=== PATIENT | male | born 1980 | race Caucasian/White ===

== ENCOUNTER 2020-01-14 11:42 | Emergency (ER) | payer OTHER, BC ==
--- NOTE | 2020-01-14 11:51 | EDM.PDOC ---
ED HPI GENERAL MEDICAL PROBLEM - General Chief Complaint: General Stated Complaint: hand injury Time Seen by Provider: 01/14/20 11:42 Source of Information: Reports: Patient History Limitations: Reports: No Limitations - History of Present Illness INITIAL COMMENTS - FREE TEXT/NARRATIVE: This patient is a 39 year ld male that presents to the ER. Patient reports he was working on accumulator when under high pressure hit his left hand with hydraulic oil. Patient reports he immediately washed with cool water and soap. Patient reports right away his hand burned, but now it feels better. Patient reports he is concerned with a high pressure injection wound, and infection risk. Patient denies any other injury. Onset: Today Onset Date: 01/14/20 Onset Time: 11:35 Duration: Minutes: (10) Location: Reports: Upper Extremity, Right Front/Back Body Image: 1 - pain, Quality: Reports: Burning Severity: Mild Improves with: Reports: None Worsens with: Reports: None Associated Symptoms: Reports: No Other Symptoms. Denies: Confusion, Chest Pain , Cough, cough w sputum, Diaphoresis, Fever/Chills, Headaches, Loss of Appetite , Malaise, Nausea/Vomiting, Rash, Seizure, Shortness of Breath, Syncope, Weakness - Related Data Allergies Allergy/AdvReac Type Severity Reaction Status Date / Time No Known Allergies Allergy Verified 01/14/20 11:44 Home Meds: Home Meds Sulfamethoxazole/Trimethoprim [Bactrim Ds Tablet] 1 each PO BID #10 tablet 01/13 [Rx] ED ROS GENERAL - Review of Systems Review Of Systems: See Below Constitutional: Reports: No Symptoms HEENT: Reports: No Symptoms Respiratory: Reports: No Symptoms Cardiovascular: Reports: No Symptoms Endocrine: Reports: No Symptoms GI/Abdominal: Reports: No Symptoms : Reports: No Symptoms Musculoskeletal: Reports: Hand Pain (right hand burning, mild now.) Skin: Reports: Erythema (right hand) Neurological: Reports: No Symptoms Psychiatric: Reports: No Symptoms Hematologic/Lymphatic: Reports: No Symptoms Immunologic: Reports: No Symptoms ED EXAM, GENERAL - Physical Exam Exam: See Below Exam Limited By: No Limitations General Appearance: Alert, WD/WN, No Apparent Distress, Anxious Respiratory/Chest: No Respiratory Distress, Lungs Clear, Normal Breath Sounds, No Accessory Muscle Use Cardiovascular: Normal Peripheral Pulses, Regular Rate, Rhythm, No Edema, No Gallop, No JVD, No Murmur, No Rub Peripheral Pulses: 2+: Radial (L), Radial (R) Back Exam: Normal Inspection Extremities: Normal Range of Motion, No Pedal Edema, Normal Capillary Refill, Other (Left hand mild pain, tenderness. mild errythema. No visible blisters. Pulses +2 cap refill < 2sec, sensory/motor function intact. Neurovascular intact. ROM intact. ) Neurological: Alert, Oriented Psychiatric: Anxious Skin Exam: Warm, Dry, Intact, Erythema (right hand mild. ), Other (no open wounds) Course - Vital Signs Last Recorded V/S: Last Vital Signs Temp 97.4 F 01/14/20 11:42 Pulse 94 01/14/20 11:42 Resp 16 01/14/20 11:42 BP 148/93 H 01/14/20 11:42 Pulse Ox 98 01/14/20 11:42 - Orders/Labs/Meds Orders: Active Orders 24 hr Category Date Time Status Hand Comp Min 3V Lt [CR] Stat Exams 01/14/20 11:44 Taken - Radiology Interpretation Free Text/Narrative:: Left hand: FB seen left 2nd digit. No dislocation, no fracture. - Re-Assessments/Exams Free Text/Narrative Re-Assessment/Exam: 01/14/20 12:02 I do not see open wounds on his hands. But, a FB on the left 2nd digit xray. I will put patient on abx for this. I will not go opening patient skin to explore for this FB. I will have patient see his PCP tomorrow and Orthopedic this week. Patient educated when to return to the ER. 01/14/20 12:04 The FB is old metal from old injury. Discussed with patient his risks with injection injury at high pressure with the oil. He understands. Told him changes may occur as soon as he leaves the ER, to 6 hours, to days. He understands this, will see PCP tomorrow for recheck of the hand to ensure no complications. Departure - Departure Time of Disposition: 12:06 Disposition: Home, Self-Care 01 Condition: Fair Clinical Impression: Left hand pain - Discharge Information *PRESCRIPTION DRUG MONITORING PROGRAM REVIEWED*: Not Applicable *COPY OF PRESCRIPTION DRUG MONITORING REPORT IN PATIENT TONI: Not Applicable Prescriptions: Sulfamethoxazole/Trimethoprim [Bactrim Ds Tablet] 1 each PO BID #10 tablet Instructions: Hand Pain Referrals: PCP,None [Primary Care Provider] - Forms: ED Department Discharge Additional Instructions: Followup with primary care provider tomorrow for a recheck Followup with orthopedic this week Return to the ER for worsening of condition or any emergent concerns COLE for redness, drainage, opening of wounds, increase pain, blistering, fever, vomiting , or any concerns at all!!!! Rest Ice to hand Motrin/Tylenol for pain Elevate Bactrim DS 1 pill twice a day for 10 days #20 no refill: Sent to pharmacy Sepsis Event Note (ED) - Evaluation Sepsis Screening Result: No Definite Risk - Focused Exam Vital Signs: Vital Signs Temp Pulse Resp BP Pulse Ox 01/14/20 11:42 97.4 F 94 16 148/93 H 98 - My Orders Last 24 Hours: My Active Orders 01/14/20 11:44 Hand Comp Min 3V Lt [CR] Stat - Assessment/Plan Last 24 Hours: My Active Orders 01/14/20 11:44 Hand Comp Min 3V Lt [CR] Stat Plan: PLEASE SEE RN NOTE FOR PFSH.
== END 2020-01-14 12:13 | disposition home or self-care (01) ==
LOC: CC.ED 11:42
DX: M79.642 Pain in left hand (principal); Z79.899 Other long term (current) drug therapy
CPT/HCPCS: 73130-LT; 99283

== ENCOUNTER 2020-01-29 22:20 | Emergency (ER) | payer BC, OTHER ==
--- NOTE | 2020-01-29 22:35 | EDM.PDOC ---
ED HPI GENERAL MEDICAL PROBLEM - General Chief Complaint: General Stated Complaint: medical clearance for [facility] Time Seen by Provider: 01/29/20 22:20 Source of Information: Reports: Patient History Limitations: Reports: No Limitations - History of Present Illness INITIAL COMMENTS - FREE TEXT/NARRATIVE: Giovani is a 39 yo male who presents to the ED for medical clearance for admi ssion to [facility]. He is brought in by Delmar CAZARES after apparently posting a video to snap chat asking if he should video himself hanging himself. PD responded after being notified and he was found to have noose. They have arranged for transfer to [facility] pending medical clearance. He denies any issues other than suicidal ideations and plan. Reports he has struggled with depression for some time now. Has had suicidal thoughts and attempts in the past as well. Associated Symptoms: Reports: No Other Symptoms - Related Data Allergies Allergy/AdvReac Type Severity Reaction Status Date / Time No Known Allergies Allergy Verified 01/29/20 22:21 Home Meds: Home Meds . [No Known Home Meds] 01/29/20 [History] Past Medical History Respiratory History: Reports: Asthma - Past Surgical History HEENT Surgical History: Reports: Adenoidectomy, Tonsillectomy Social & Family History - Tobacco Use Smoking Status *Q: Current Every Day Smoker Years of Tobacco use: 20 Packs/Tins Daily: 1 - Caffeine Use Caffeine Use: Reports: Coffee - Alcohol Use Alcohol Use Frequency: Daily - Recreational Drug Use Recreational Drug Use: No ED ROS GENERAL - Review of Systems Review Of Systems: Comprehensive ROS is negative, except as noted in HPI. ED EXAM, GENERAL - Physical Exam Exam: See Below Exam Limited By: No Limitations General Appearance: Alert, WD/WN, No Apparent Distress Eye Exam: Bilateral Eye: EOMI, Normal Fundi, Normal Inspection Ears: Normal External Exam, Normal Canal, Hearing Grossly Normal, Normal TMs Nose: Normal Inspection, Normal Mucosa, No Blood Throat/Mouth: Normal Inspection, Normal Lips, Normal Teeth, Normal Gums, Normal Oropharynx, Normal Voice, No Airway Compromise Head: Atraumatic, Normocephalic Neck: Normal Inspection, Supple, Non-Tender, Full Range of Motion Respiratory/Chest: No Respiratory Distress, Lungs Clear, Normal Breath Sounds, No Accessory Muscle Use, Chest Non-Tender Cardiovascular: Normal Peripheral Pulses, Regular Rate, Rhythm, No Edema, No Gallop, No JVD, No Murmur, No Rub GI/Abdominal: Normal Bowel Sounds, Soft, Non-Tender, No Organomegaly, No Distention, No Abnormal Bruit, No Mass Back Exam: Normal Inspection, Full Range of Motion, NT Extremities: Normal Inspection, Normal Range of Motion, Non-Tender, Normal Capillary Refill, No Pedal Edema Neurological: Alert, Oriented, CN II-XII Intact, Normal Cognition, Normal Gait, Normal Reflexes, No Motor/Sensory Deficits Psychiatric: Normal Affect, Normal Mood Skin Exam: Warm, Dry, Intact, Normal Color, No Rash Lymphatic: No Adenopathy Course - Vital Signs Last Recorded V/S: Last Vital Signs Temp 98.2 F 01/29/20 22:21 Pulse 77 01/29/20 22:21 Resp 18 01/29/20 22:21 BP 135/76 01/29/20 22:21 Pulse Ox - Orders/Labs/Meds Labs: Laboratory Tests 01/29/20 01/29/20 01/29/20 Range/Units 22:30 22:30 22:30 WBC 11.6 H (5.0-10.0) 10^3/uL RBC 4.80 (4.50-6.00) 10^6/uL Hgb 15.7 (14.0-18.0) g/dL Hct 44.1 (40.0-54.0) % MCV 91.9 (82.0-94.0) fL MCH 32.7 H (27.0-32.0) pg MCHC 35.6 (33.0-38.0) g/dL RDW Coeff of Alvin 12.3 (11.0-15.0) % Plt Count 242 (150-400) 10^3/uL Neut % (Auto) 50.3 (35-85) % Lymph % (Auto) 39.9 (10-55) % [place] % (Auto) 8.4 (0-16) % Eos % (Auto) 1.1 (0-5) % Baso % (Auto) 0.3 (0-3) % Neut # (Auto) 5.82 (1.80-7.00) 10^3/uL Lymph # (Auto) 4.63 (1.00-4.80) 10^3/uL [place] # (Auto) 0.97 H (0.00-0.80) 10^3/uL Eos # (Auto) 0.13 (0.00-0.45) 10^3/uL Baso # (Auto) 0.04 10^3/uL Sodium (136-145) mEq/L Potassium (3.5-5.0) mEq/L Chloride (98-106) mEq/L Carbon Dioxide (21-32) mmol/L BUN (7-18) mg/dL Creatinine (0.7-1.3) mg/dL Est Cr Clr Drug Dosing Estimated GFR (MDRD) (>=60) mL/min Glucose (75-99) mg/dL Calcium (8.4-10.1) mg/dL Urine Color Straw (YELLOW) Urine Appearance Clear (CLEAR) Urine pH 6.0 (4.5-8.0) Ur Specific [place] <= 1.005 (1.003-1.020) Urine Protein Negative (NEGATIVE) mg/dL Urine Glucose (UA) Negative (NEGATIVE) mg/dL Urine Ketones Negative (NEGATIVE) mg/dL Urine Occult Blood Negative (NEGATIVE) Urine Nitrite Negative (NEGATIVE) Urine Bilirubin Negative (NEGATIVE) Urine Urobilinogen 0.2 (0.2-1.0) EU/dL Ur Leukocyte Esterase Negative (NEGATIVE) Urine Opiates Screen Negative (NEGATIVE) Ur Oxycodone Screen Negative (NEGATIVE) Urine Methadone Screen Negative (NEGATIVE) Ur Barbiturates Screen Negative (NEGATIVE) U Tricyclic Antidepress Negative (NEGATIVE) Ur Phencyclidine Scrn Negative (NEGATIVE) Ur Amphetamine Screen Negative (NEGATIVE) U Methamphetamines Scrn Negative (NEGATIVE) Urine MDMA Screen Negative (NEGATIVE) U Benzodiazepines Scrn Negative (NEGATIVE) Urine Cocaine Screen Negative (NEGATIVE) U Marijuana (THC) Screen Negative (NEGATIVE) Ethyl Alcohol (0-3) mg/dL 30/20 Range/Units 22:30 WBC (5.0-10.0) 10^3/uL RBC (4.50-6.00) 10^6/uL Hgb (14.0-18.0) g/dL Hct (40.0-54.0) % MCV (82.0-94.0) fL MCH (27.0-32.0) pg MCHC (33.0-38.0) g/dL RDW Coeff of Alvin (11.0-15.0) % Plt Count (150-400) 10^3/uL Neut % (Auto) (35-85) % Lymph % (Auto) (10-55) % [place] % (Auto) (0-16) % Eos % (Auto) (0-5) % Baso % (Auto) (0-3) % Neut # (Auto) (1.80-7.00) 10^3/uL Lymph # (Auto) (1.00-4.80) 10^3/uL [place] # (Auto) (0.00-0.80) 10^3/uL Eos # (Auto) (0.00-0.45) 10^3/uL Baso # (Auto) 10^3/uL Sodium 140 (136-145) mEq/L Potassium 3.5 (3.5-5.0) mEq/L Chloride 100 (98-106) mEq/L Carbon Dioxide 25 (21-32) mmol/L BUN 6 L (7-18) mg/dL Creatinine 0.8 (0.7-1.3) mg/dL Est Cr Clr Drug Dosing TNP Estimated GFR (MDRD) > 60 (>=60) mL/min Glucose 88 (75-99) mg/dL Calcium 9.0 (8.4-10.1) mg/dL Urine Color (YELLOW) Urine Appearance (CLEAR) Urine pH (4.5-8.0) Ur Specific [place] (1.003-1.020) Urine Protein (NEGATIVE) mg/dL Urine Glucose (UA) (NEGATIVE) mg/dL Urine Ketones (NEGATIVE) mg/dL Urine Occult Blood (NEGATIVE) Urine Nitrite (NEGATIVE) Urine Bilirubin (NEGATIVE) Urine Urobilinogen (0.2-1.0) EU/dL Ur Leukocyte Esterase (NEGATIVE) Urine Opiates Screen (NEGATIVE) Ur Oxycodone Screen (NEGATIVE) Urine Methadone Screen (NEGATIVE) Ur Barbiturates Screen (NEGATIVE) U Tricyclic Antidepress (NEGATIVE) Ur Phencyclidine Scrn (NEGATIVE) Ur Amphetamine Screen (NEGATIVE) U Methamphetamines Scrn (NEGATIVE) Urine MDMA Screen (NEGATIVE) U Benzodiazepines Scrn (NEGATIVE) Urine Cocaine Screen (NEGATIVE) U Marijuana (THC) Screen (NEGATIVE) Ethyl Alcohol 193 H (0-3) mg/dL Departure - Departure Time of Disposition: 22:57 Disposition: Home, Self-Care 01 Condition: Good Clinical Impression: Severe depression, Suicidal behavior with attempted self-injury - Discharge Information *PRESCRIPTION DRUG MONITORING PROGRAM REVIEWED*: Not Applicable *COPY OF PRESCRIPTION DRUG MONITORING REPORT IN PATIENT TONI: Not Applicable Instructions: Major Depressive Disorder, Adult, [id number] Forms: ED Department Discharge Additional Instructions: - Patient discharged to care [facility] to be transported to [facility] Sepsis Event Note (ED) - Focused Exam Vital Signs: Vital Signs Temp Pulse Resp BP 01/29/20 22:21 98.2 F 77 18 135/76 - Problem List & Annotations (1) Severe depression SNOMED Code(s): 059850646 Code(s): F32.2 - MAJOR DEPRESSV DISORD, SINGLE EPSD, SEV W/O PSYCH FEATURES Status: Acute (2) Suicidal behavior with attempted self-injury SNOMED Code(s): 970920918, 550444623 Code(s): T14.91XA - SUICIDE ATTEMPT, INITIAL ENCOUNTER Status: Acute - Assessment/Plan Assessment:: Severe Depression Suicidal Behavior with attempted self injury Plan: 39 yo male presents to ED for medical clearance for admission to [facility]. He denies complaints. Does report he drank ~ 9 beers prior to attempted hanging. Lab work all stable except ETOH 193. Patient is medically cleared for admission to [facility]. Arrangements were made prior to Ed presentation for admission. He will be discharged to care of [facility].
[2020-01-29 22:44] LABS: CHLORIDE,CL 100 mEq/L (98-106); SODIUM,NA 140 mEq/L (136-145)
== END 2020-01-29 23:10 ==
LOC: CC.ED 22:20
DX: F32.2 Major depressive disorder, single episode, severe without psychotic features (principal); F17.210 Nicotine dependence, cigarettes, uncomplicated
CPT/HCPCS: 36415; 80048; 80305-QW; 80307; 81003; 85025; 99285